=== PATIENT | female | born 1950 | race Caucasian/White ===

== ENCOUNTER → 2024-08-01 | Day surgery (SDC) | payer MEDICARE ==
--- NOTE | 2024-07-18 15:50 | ELECTROCARDIOGRAPH REPORT ---
[facility] Test Date: 2024-07-18 Test Time: 15:46:50 Pat Name: BEN SAMPSON Department: [facility]-PRE-OP Patient ID: [facility]-[id number] Room: Gender: F Radio Equipment Installer: VARUN : 1950 Requested By: PETE LOCO Order Number: [id number] Reading MD: Dr. Taz Hayden Measurements Intervals [place] Rate: 58 P: 72 AK: 161 QRS: 77 QRSD: 98 T: 66 QT: 479 QTc: 471 Interpretive Statements Sinus bradycardia Atrial premature complex Electronically Signed On 07-19-2024 8:24:[address] Taz Hayden Please click the below link to view image of tracing.
[2024-07-18 16:00] LABS: BASOPHILS # (AUTO) 0.1 X10'3 (0-0.2); BASOPHILS % (AUTO) 0.6 % (0-1); EOSINOPHILS # (AUTO) 0.1 X10'3 (0-0.9); EOSINOPHILS % (AUTO) 0.8 % (0-6); LYMPHOCYTES # (AUTO) 3.5 X10'3 (1.1-4.8); LYMPHOCYTES % (AUTO) 34.4 % (21-51); MEAN CORPUSCULAR HEMOGLOBIN 33.2 PG (27.0-31.0); MEAN CORPUSCULAR HGB CONC 33.8 g/dL (33.0-36.5); MEAN CORPUSCULAR VOLUME 98.2 FL (78-98); MEAN PLATELET VOLUME 8.8 FL (7.4-10.4); MONOCYTES # (AUTO) 0.8 X10'3 (0-0.9); MONOCYTES % (AUTO) 7.5 % (2-12); NEUTROPHILS # (AUTO) 5.7 X10'3 (1.8-7.7); NEUTROPHILS % (AUTO) 56.7 % (42-75); PRE OP HEMATOCRIT 40.9 % (35.0-45.0); PRE OP HEMOGLOBIN 13.8 g/dL (12.0-16.0); PRE OP PLATELET COUNT 349 X10'3 (140-440); PRE OP WHITE BLOOD COUNT 10.1 10'3 (4.8-10.8); RED BLOOD COUNT 4.16 X10'6 (4.20-5.60); RED CELL DISTRIBUTION WIDTH 13.4 % (11.5-14.5)
[2024-07-18 16:27] LABS: ALBUMIN 3.5 G/DL (3.4-5.0); ALKALINE PHOSPHATASE 49 IU/L (46-116); BLOOD UREA NITROGEN 24 MG/DL (7-18); BUN/CREATININE RATIO 31.2 (10.0-20.0); CALCIUM 9.5 MG/DL (8.5-10.1); CHLORIDE 104 MMOL/L (99-107); CREATININE 0.77 MG/DL (0.40-0.90); PRE OP ALT 27 U/L (30-65); PRE OP ANION GAP 8 (8-16); PRE OP AST 19 U/L (10-37); PRE OP BILIRUB, TOTAL 0.4 MG/DL (0.0-1.0); PRE OP GLUCOSE 87 MG/DL (70-104); PRE OP POTASSIUM 4.4 MMOL/L (3.4-5.1); PRE OP SODIUM 142 MMOL/L (135-145); TOTAL CARBON DIOXIDE 30.4 MMOL/L (24-32); TOTAL PROTEIN 7.1 G/DL (6.4-8.2); eGFR 74 ML/MIN
[~2024-08-01] VITALS: Ht 154.9 cm; Wt 55.6 kg
[2024-08-01] VITALS (10 sets, daily range): BP systolic 126–147; BP diastolic 51–70; PULSE 74–86; RESP 8–16; TEMP 98.1; O2SAT 93–100
[~2024-08-01] MED LIST: BUPIVACAINE liposomal/PF 13.3 MG/ML 10mL vial IM ONE; BUPIVAcaine/PF 2.5mg/ml (0.25%) 10ml vial ONE; ESTR20VI7 IM; HYDROmorphone/PF 0.2 MG/ML SYRINGE IV PRN; LIDOcaine 1% (10mg/ml)w/preservative inj. 20ml MDV ONE; PROG100C11 PO; THYR120T2 PO; acetaminophen 1,000mg/100ml IV 100 ML IV ONE; dexamethasone sod phosphate 4mg/ml inj. ONE; fentaNYL/PF 50MCG/1 ML 2ML syringe ONE; hydrALAZINE 20mg/ml inj. IV PRN; labetalol 20mg/4ml (5mg/ml) syringe IV PRN; methylene blue (5mg/ml) 50mg/10ml ampul IV ONE; midazolam 1 mg/ML 2ml injection ONE; morphine 2 MG/ML inj. syringe IV PRN; ondansetron/PF 4mg/2ml inj IV PRN; ondansetron/PF 4mg/2ml inj ONE; propofol inj 20 ML IV ONE; ringers solution, lacted 1,000 ML IV SCH; sevoflurane 250ml liquid IH ONE
[2024-08-01] MEDS: ceFAZolin 2gm/dext,iso 50mL 50 ML IV ONE (05:30)
[2024-08-01] MEDS: famotidine 20mg tablet PO ONE (11:42)
[2024-08-01] MEDS: ringers solution, lacted 1,000 ML IV SCH (11:43)
[2024-08-01] MEDS: methylene blue (5mg/ml) 50mg/10ml ampul IV ONE (13:37)
--- NOTE | 2024-08-01 14:58 | OPERATIVE REPORT ---
Operative Report Providers to CC: PETE LOCO DO ~ Date of Procedure: Aug 01, 2024 Pre-Operative Diagnosis: Right breast invasive ductal carcinoma Post-Operative Diagnosis SAME as PRE-Op Procedure Performed Right breast wire localized lumpectomy and right axillary sentinel lymph node biopsy and oncoplastic closure of acquired defect Surgeon: Dr. Pete Loco Substation Wireman instrumentation technologist Anesthesiologist: Jim Ivan Findings: Scar tissue clip identified on specimen radiograph Complications None Prosthetics\Implants used: None Estimated Blood Loss: Less than 5 mL Specimen Removed: 1 Right breast wire localized lumpectomy-suture marked short superior, long lateral, double deep 2 Right anterior margin suture balderas final margin 3 Right axillary sentinel lymph node 1. Hot only 303 4 Right axillary sentinel lymph node 2. Hot and blue 637 5 Right axillary sentinel lymph node 3. Hot and blue 2276 6 Right axillary sentinel lymph node 4. Blue only Description of Procedure: Delgado is a 73-year-old female who was diagnosed with right breast invasive ductal carcinoma. She was seen in the office and evaluated for surgical management. She presented this morning for nuclear medicine injection and wire localization of the right breast. She was evaluated in the preoperative holding area by myself and the anesthesiologist. The right breast was marked with my initials. She was taken into the OR suite and placed on table in supine position with the arms extended. She had SCDs in place, IV had been admin istered, and IV antibiotics administered before the cut of surgery. General anesthesia was administered with an LMA. The bandages and tape was removed from the right breast and the wire was cut short. Three-month 3 mL of methylene blue dye was injected at the 9 o'clock position subareolar massaged for 4 minutes. The patient was prepped and draped in a sterile fashion and a time-out was performed and agreed upon. A proposed incision was made at the Rosemarie areolar site between six and 9:00. 1% lidocaine was injected at the site. The wire had been placed into the breast at the 7 o'clock position in a radial fashion. Once I made the incision with a 10 blade I dissected through the deep dermal fascia with the cautery and is a lighted retractor to visualize the cavity to pull the wire into the cavity. Once the wire was pulled into the cavity Romero retractors were placed in the cavity I was able to excise the breast tissue with a wire in its entirety. Once the lumpectomy was removed from the cavity it was oriented with short stitch superior, long suture lateral, double suture deep. The specimen was placed in the specimen radiograph machine on the board and the marker was identified with a wire. The marker appeared to be not centered but closer to the anterior margin. The specimen was placed in formalin. Based on the imaging results I excised the anterior margin and marked the new margin with the silk suture. The specimen was placed off the field into formalin. The cavity was copiously irrigated and the defect measured 8 cm x 3 cm x 4 cm. I dissected laterally and medially pillars of tissue for reapproximated in the cavity. Hemostasis was achieved with Bovie electrocautery the cavity was copiously irrigated. I turned my attention to the right axillary sentinel lymph node biopsy. 1% lidocaine was injected at the proposed incision site in the lower axillary space. I made my incision with a 10 blade and dissected through the deep dermal layer with the cutting on the cautery. Once in a deep dermal space and subcutaneous space I dissected through the axillary fascia and placed Romero retractors in the axilla. I used the gamma probe to identify hot spots. There was also evidence of blue lymphatics. Four lymph nodes were identified. The 1st one was hot only and was completely excised with cautery and the LigaSure. The 2nd two were hot and blue were completely excised and the last week blue only. All were completely excised and placed off the field IN FORMALIN the cavity was irrigated hemostasis was achieved with Bovie electrocautery. The axillary fascia was reapproximated with 3-0 Vicryl interrupted sutures. The skin was approximated with 3-0 Vicryl interrupted suture and a 4-0 Monocryl running subcuticular stitch. I turned my attention to closing the breast cavity. The two pillars the tissue were approximated to close the breast defect with 3-0 severo Vicryl suture. The skin was closed with 3-0 Vicryl interrupted sutures and 4-0 Monocryl running subcuticular stitch in a Rosemarie areolar fashion. The incision sites were cleaned and Exparel 0.25% Marcaine mix was injected at both sites. Dermabond glue was placed over both incisions and sterile dressings were placed in both incisions and a pressure dressing to the right axilla. The patient was wrapped with a breast binder and taken to recovery in stable condition without complication. Counts repoted as correct: Yes PETE LOCO DO Aug 01, 2024 14:58
[2024-08-01] MEDS: morphine 4 MG/ML inj SYRINge IV PRN (15:01)
[2024-08-01] MEDS: HYDROmorphone/PF 0.2 MG/ML SYRINGE IV PRN (15:21)
--- NOTE | 2024-08-07 17:21 | PATHOLOGY REPORT ---
[facility] [address] [place] [address] SURGICAL PATHOLOGY REPORT CaseNumber: [id number] Surgeon:Bria Pedroza P.A.-C CLINICAL INFORMATION CLINICAL INFORMATION: Newly diagnosed RT breast cancer. No neoadjuvant therapy. DIAGNOSIS DIAGNOSIS: A.BREAST, RIGHT; LUMPECTOMY - INVASIVE MUCINOUS CARCINOMA, VASU GRADE II. 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 - INVASIVE CARCINOMA INVOLVES THE ANTERIOR MARGIN IN THIS SPECIMEN. - IN-SITU CARCINOMA IS PRESENT LESS THAN 1 MM FROM THE INFERIOR MARGIN. - SEE SYNOPTIC REPORT. DIAGNOSIS: B.BREAST, RIGHT ANTERIOR MARGIN; RE-EXCISION - BENIGN BREAST TISSUE WITH FIBROCYSTIC CHANGES. - NEGATIVE FOR INVASIVE AND IN-SITU CARCINOMA. DIAGNOSIS: C.SENTINEL NODE, RIGHT AXILLA #1; EXCISION - ONE LYMPH NODE, NEGATIVE FOR CARCINOMA (0/1). DIAGNOSIS: D.SENTINEL NODE, RIGHT AXILLA #2; EXCISION - ONE LYMPH NODE, NEGATIVE FOR CARCINOMA (0/1). DIAGNOSIS: E.SENTINEL NODE, RIGHT AXILLA #3; EXCISION - ONE LYMPH NODE, NEGATIVE FOR CARCINOMA (0/1). DIAGNOSIS: F.SENTINEL NODE, RIGHT AXILLA #4; EXCISION - ONE LYMPH NODE, NEGATIVE FOR CARCINOMA (0/1). MICROSCOPIC DESCRIPTION A. BREAST, RIGHT MICROSCOPIC DESCRIPTION: 7 H&E stained slides are examined. They show multiple sections of breast ti ssue with invasive mucinous carcinoma, [place] grade 2, in a background of intermediate grade merry d and cribriform ductal carcinoma in situ. Block A2 shows ductal carcinoma in situ less than 1 mm fr om the green inked inferior margin (corroborated by immunostains for ER, p40, and CK5/6). Block A3 r epresenting the orange inked medial margin shows fibrocystic changes only (corroborated by immunostai ns for ER, p40, and CK5/6). Block A4 representing the yellow inked lateral margin likewise shows fib rocystic changes only with some thermal artifact (again corroborated by immunostains for ER, p40, and CK5/6). A p40 immunostain performed on block A6 demonstrates invasive carcinoma and areas of ductal carcinoma in situ. The area of invasive carcinoma measures 1.5 x 1.2 cm on the slide, and involves the red inked anterior surgical margin in this specimen. Focally, the malignant cells are identified within a lymphovascular space which in my opinion is suspicious for lymphovascular invasion but might also represent artifactual displacement of the tumor cells. The posterior and superior margins show s fibrocystic changes only. B. BREAST, RIGHT ANTERIOR MARGIN MICROSCOPIC DESCRIPTION: 6 H&E stained slides are examined. They show sections of breast tissue with fibrocystic changes including apocrine metaplasia, microcyst formation, and usual ductal hyperplasia. These histologic findings are corroborated by immunostains for ER, CK5/6, and p40. C. SENTINEL NODE, RIGHT AXILLA #1 MICROSCOPIC DESCRIPTION: Three H&E stained slides and one cytokeratin immunostain are examined. They show multiple sections and levels of lymph node. There is no evidence of metastatic carcinoma. D. SENTINEL NODE, RIGHT AXILLA #2 MICROSCOPIC DESCRIPTION: Three H&E stained slides and one cytokeratin immunostain are examined. They show multiple sections and levels of lymph node. There is no evidence of metastatic carcinoma. E. SENTINEL NODE, RIGHT AXILLA #3 MICROSCOPIC DESCRIPTION: Three H&E stained slides and one cytokeratin immunostain are examined. They show multiple sections and levels of lymph node. There is no evidence of metastatic carcinoma. F. SENTINEL NODE, RIGHT AXILLA #4 MICROSCOPIC DESCRIPTION: Three H&E stained slides and one cytokeratin immunostain are examined. They show multiple sections and levels of lymph node. There is no evidence of metastatic carcinoma. GROSS DESCRIPTION A. BREAST, RIGHT GROSS DESCRIPTION: Received in a container of formalin labeled with the patient's name, number, and " R breast wire localized lumpectomy" is a 45 g oriented excision of fibrofatty breast tissue which lionel sures 5.5 x 5 x 2.5 cm. There are sutures identifying the superior, lateral, and posterior aspects of the excision. There is a guidewire protruding from the anterior margin. The superior margin is marke d blue, the inferior margin is marked green, the medial margin is marked orange, the lateral margin i s marked yellow, the anterior margin is marked red, and the posterior margin is marked black. Section ing reveals a 1.5 cm ill-defined area of induration which abuts the anterior margin in the lateral miller lf of the specimen. Sectioning the area of induration reveals foreign material present (metallic clip , broke). Sections are submitted as follows: A1) Superior marginA2) Inferior marginA3) Medial marginA4) Lateral marginA5-A6) Biopsy site with ant erior marginA7) Posterior margin B. BREAST, RIGHT ANTERIOR MARGIN GROSS DESCRIPTION: Received in a container of formalin labeled with the patient's name, number, and " anterior margin R breast " is a 9 gram oriented excision of fibrofatty breast tissue which measures 3 .5 x 4 x 1.5 cm. There is a suture found marking the new margin. The specimen is sectioned and of sec tions are submitted as B1-B6. C. SENTINEL NODE, RIGHT AXILLA #1 GROSS DESCRIPTION: Received in a container of formalin labeled with the patient's name, number, and " R axillary sentinel lymph node #1 " is a 1 cm pink-landry lymph node candidate. The specimen is sectione d and submitted as C1. D. SENTINEL NODE, RIGHT AXILLA #2 GROSS DESCRIPTION: Received in a container of formalin labeled with the patient's name, number, and " R axillary sentinel lymph node #2 " is a 1.5 cm blue stained fat replaced lymph node candidate. The s pecimen is sectioned and submitted as D1. E. SENTINEL NODE, RIGHT AXILLA #3 GROSS DESCRIPTION: Received in a container of formalin labeled with the patient's name, number, and " right axillary sentinel lymph node #3" is a 1.5 cm blue stained fat replaced lymph node candidate. Th e specimen is sectioned and submitted as E1. F. SENTINEL NODE, RIGHT AXILLA #4 GROSS DESCRIPTION: Received in a container of formalin labeled with the patient's name, number, and " Right axilla sentinel lymph node #4" is a 1 cm fat replaced lymph node candidate. The specimen is sec tioned and submitted as F1. SYNOPTIC REPORT SYNOPTIC TEXT: INVASIVE CARCINOMA OF THE BREAST: Resection Specimen Procedure: Excision (less than total mastectomy) Specimen Laterality: Right Tumor Histologic Type: Mucinous carcinoma Histologic Grade ([place] Histologic Score): Glandular (Acinar) / Tubular Differentiation: Score 3 Nuclear Pleomorphism: Score 2 Mitotic Rate: Score 1 Overall Grade: Grade 2 (scores of 6 or 7) Tumor Size: 15 x 12 Millimeters (mm) Tumor Focality: Single focus of invasive carcinoma Ductal Carcinoma In Situ (DCIS): Present - Negative for extensive intraductal component (EIC) Number of Blocks with DCIS: 2 Number of Blocks Examined: 7 Lymphatic and / or Vascular Invasion: Not identified Treatment Effect in the Breast: No known presurgical therapy Margins Margin Status for Invasive Carcinoma: Final surgical margins are negative for carcinoma Margin Status for DCIS: All margins negative for DCIS Distance from DCIS to Closest Margin: Less than 1 mm Closest Margin(s) to DCIS: Inferior Regional Lymph Nodes Regional Lymph Node Status: All regional lymph nodes negative for tumor Total Number of Lymph Nodes Examined (sentinel and non-sentinel): 4 Number of [place] Nodes Examined: 4 pTNM Classification (AJCC 8th Edition) pT Category: pT1c pN Category: pN0 N Suffix: (sn) CAP [facility] 2023 Q2 Release Electronically signed by: Alessandro Chairez, 08/07/2024 4:42:00 PM
== END | disposition home or self-care (01) ==
LOC: PAS 10:38
PROVIDERS: ATTEND Surgery
DX: C50.412 Malignant neoplasm of upper-outer quadrant of left female breast (principal); E03.9 Hypothyroidism, unspecified; Z88.8 Allergy status to other drugs, medicaments and biological substances; Z91.018 Allergy to other foods; Z90.49 Acquired absence of other specified parts of digestive tract; Z88.2 Allergy status to sulfonamides; Z79.899 Other long term (current) drug therapy; Z98.890 Other specified postprocedural states
CPT/HCPCS: 19301; 36415; 38525; 38792; 76098; 80053; 82948; 85025; 93005; A4215; A4618; A6253; A6258; A6402; A7000; J0131; J0666; J1100; J1171; J2003; J2250; J2270; J2405; J2704; J3010; J3490; J7030; J7120; Q9968; Z7506; Z7508; Z7512; Z7610; A6449